=== PATIENT | female | born 1950 | race Caucasian/White ===

== ENCOUNTER 2017-10-25 11:00 | Emergency (ER) | payer MEDICARE, BC ==
[~2017-10-25 11:00] MED LIST: Sodium Chloride 0.9% 100 ML BAG ONE
[2017-10-25 11:31] LABS: #Basophils 0.1 thou/uL (0.0-0.2); #Eosinphils 0.1 thou/uL (0.0-0.7); #Lymphocytes 2.7 thou/uL (1.20-3.40); #Monocytes 1.2 thou/uL (0.11-0.59); #Neutrophils 13.3 thou/uL (1.40-6.50); %Basophils 0.6 % (0.0-1.0); %Eosinophils 0.3 % (0.0-10.0); %Lymphocytes 15.3 % (21.0-51.0); %Monocytes 6.9 % (0.0-10.0); %Neutrophils 76.9 % (42.0-75.0); Hemoglobin 11.5 g/dL (12.0-16.0); Mean Corpuscular HGB CONC 34.2 g/dL (32.0-36.0); Mean Corpuscular Hemoglobin 28.9 pg (27.0-31.0); Mean Corpuscular Volume 84.4 fL (78.0-98.0); Mean Platelet Volume 5.4 fL (7.4-10.4); Platelet Count 236 thou/uL (130-400); RBC Distribution Width 12.4 % (11.5-14.5); Red Blood Cell (RBC) Count 3.97 mill/uL (4.20-5.40); White Blood Cell (WBC) Count 17.3 thou/uL (4.8-10.8)
[2017-10-25 11:47] LABS: ALT (SGPT) 8 U/L (8-55); AST (SGOT) 10 U/L (5-34); Albumin 3.9 g/dL (3.4-4.8); Alkaline Phosphatase 86 U/L (40-150); Anion Gap 18 mmol/L (10-20); BUN (Urea Nitrogen) 9 mg/dL (9.8-20.1); Bilirubin, Total 1.3 mg/dL (0.2-1.2); Calc. Creatinine Clearance 0 mL/min (70-130); Calcium 8.9 mg/dL (7.8-10.44); Carbon Dioxide 23 mmol/L (23-31); Chloride 98 mmol/L (98-107); Estimated GFR-MDRD 89; Globulin 2.9 g/dL (2.4-3.5); Glucose 105 mg/dL (80-115); Potassium 3.9 mmol/L (3.5-5.1); Protein, Total 6.8 g/dL (6.0-8.3); Sodium 135 mmol/L (136-145)
[2017-10-25 11:50] LABS: Troponin I Less than 0.010 ng/mL (< 0.028)
[2017-10-25] MEDS ORDERED: Acetaminophen 500 MG TAB ONE (12:37)
--- NOTE | 2017-10-25 12:40 | RAD ---
CHEST TWO VIEWS: HISTORY: Cough. COMPARISON: None. FINDINGS: The lungs mildly hyperinflated. No pneumothorax or effusion. No distinct focal air space consolidat ion. There appears to be bullous formation in the upper lobes. No acute osseous abnormality. The pulmonary arteries are mildly prominent. IMPRESSION: 1. Evidence of obstructive pulmonary disease. 2. Nodular density, right lung apex, likely some scarring. Nonemergent follow-up CT chest may be be neficial. 3. Distal left clavicular osteolysis. POS: [facility]
[2017-10-25 12:44] LABS: Bilirubin Negative (Negative); Blood, Urine Moderate (Negative); Clarity Clear (Clear); Glucose, Urine (Dipstick) Negative (Negative); Leukocyte Negative (Negative); Nitrite Negative (Negative); Protein, Urine (Dipstick) Negative (Neg-Trace); Urobilinogen 0.2 mg/dL (0.2-1.0)
[2017-10-25 12:57] LABS: Bacteria/HPF Rare-Few HPF (None Seen); Squamous Epithelial 0-3 HPF (0-3); WBC/HPF None Seen HPF (0-3)
[2017-10-25] MEDS ORDERED: cefTRIAXone\\ROCEPHIN 1 GM VIAL ONE (13:17)
== END 2017-10-25 13:56 | disposition home or self-care (01) ==
LOC: MADERS 11:00
DX: J06.9 Acute upper respiratory infection, unspecified (principal); M19.90 Unspecified osteoarthritis, unspecified site; E78.5 Hyperlipidemia, unspecified; J44.9 Chronic obstructive pulmonary disease, unspecified; F32.9 Major depressive disorder, single episode, unspecified; Z87.891 Personal history of nicotine dependence; Z79.891 Long term (current) use of opiate analgesic; Z79.899 Other long term (current) drug therapy
CPT/HCPCS: 71046; 80053; 81003; 81015; 82553; 83605; 83880; 84484; 85025; 87040; 87149; 96365; J0696; J7050

== ENCOUNTER 2020-01-11 17:29 | Emergency (ER) | payer MEDICARE, BC ==
[2020-01-11] MEDS ORDERED: Ondansetron PF 4 MG/2 ML Vial ONE (17:45)
[2020-01-11] MEDS ORDERED: Ibuprofen 800 MG TAB ONE (17:53)
[2020-01-11] MEDS ORDERED: Aspirin Chewable 81 MG TAB ONE (17:53)
[2020-01-11] MEDS ORDERED: Sodium Chloride 0.9% 1,000 ML ONE (17:53)
[2020-01-11] MEDS ORDERED: Dexamethasone 10 MG/ML VIAL ONE (17:53)
[2020-01-11 18:07] LABS: #Lymphocytes 1.5 thou/uL (1.20-3.40); #Monocytes 0.4 thou/uL (0.11-0.59); %Basophils 0.7 % (0.0-1.0); %Eosinophils 0.3 % (0.0-10.0); %Lymphocytes 25.2 % (21.0-51.0); %Monocytes 5.9 % (0.0-10.0); %Neutrophils 67.8 % (42.0-75.0); Hemoglobin 13.8 g/dL (12.0-16.0); Mean Corpuscular HGB CONC 31.9 g/dL (32.0-36.0); Mean Corpuscular Hemoglobin 28.2 pg (27.0-31.0); Mean Corpuscular Volume 88.3 fL (78.0-98.0); Mean Platelet Volume 6.9 fL (7.4-10.4); Platelet Count 205 thou/uL (130-400); RBC Distribution Width 12.3 % (11.5-14.5); Red Blood Cell (RBC) Count 4.91 mill/uL (4.20-5.40); White Blood Cell (WBC) Count 5.9 thou/uL (4.8-10.8)
[2020-01-11 18:25] LABS: ALT (SGPT) 22 U/L (8-55); AST (SGOT) 18 U/L (5-34); Albumin 3.8 g/dL (3.4-4.8); Alkaline Phosphatase 106 U/L (40-110); Anion Gap 15 mmol/L (10-20); BUN (Urea Nitrogen) 9 mg/dL (9.8-20.1); Calc. Creatinine Clearance 0 mL/min (70-130); Calcium 8.3 mg/dL (7.8-10.44); Carbon Dioxide 27 mmol/L (23-31); Chloride 95 mmol/L (98-107); Estimated GFR-MDRD 79; Globulin 3.1 g/dL (2.4-3.5); Glucose 102 mg/dL (83-110); Potassium 3.4 mmol/L (3.5-5.1); Protein, Total 6.9 g/dL (6.0-8.3); Sodium 134 mmol/L (136-145)
--- NOTE | 2020-01-11 19:15 | RAD ---
Portable frontal chest radiograph: 01/11/2020 COMPARISON: 10/25/2017 HISTORY: Covid positive patient with shortness of breath FINDINGS: Increased linear interstitial density with pulmonary hyperinflation noted, stable when comp ared to the prior exam. Emphysematous changes are noted in the lung apices. There is atherosclerotic obscuration the aortic arch. No focal consolidation or alveolar edema IMPRESSION: No acute findings.
== END 2020-01-11 19:42 | disposition home or self-care (01) ==
LOC: MADERS 17:30
DX: R06.02 Shortness of breath (principal); R11.2 Nausea with vomiting, unspecified; R50.9 Fever, unspecified; R05 Cough; R07.9 Chest pain, unspecified; Z20.828 Contact with and (suspected) exposure to other viral communicable diseases; J44.9 Chronic obstructive pulmonary disease, unspecified; M19.90 Unspecified osteoarthritis, unspecified site; E78.5 Hyperlipidemia, unspecified; E78.00 Pure hypercholesterolemia, unspecified; F32.9 Major depressive disorder, single episode, unspecified; Z87.891 Personal history of nicotine dependence
CPT/HCPCS: 36415; 71045; 80053; 83605; 83880; 84484; 85025; 87040; 93005; 96374; 96375; J1100; J2405; J7050

== ENCOUNTER 2020-05-09 12:26 | Outpatient (CLI) | payer MEDICARE, BC ==
--- NOTE | 2020-05-09 12:48 | RAD ---
EXAM: Chest PA and lateral: HISTORY: COVID positive patient. Cough. COMPARISON: 10/25/2017, 01/11/2020 FINDINGS: Heart: Normal cardiac silhouette Aorta: Atherosclerosis is once again demonstrated Pulmonary vessels: Normal Costophrenic angles: Costophrenic angles are clear. Lungs: No consolidation or masses. Chronic changes. Hyperinflation is once again demonstrated. Pneumothorax: No pneumothorax Osseous structures: No osseous abnormalities IMPRESSION: 1. No acute cardiopulmonary process. 2. Atherosclerosis 3. Hyperinflation. Chronic changes.
== END 2020-05-09 12:27 | disposition home or self-care (01) ==
LOC: MADRAD 12:26
PROVIDERS: ATTEND Family Medicine
DX: J44.1 Chronic obstructive pulmonary disease with (acute) exacerbation (principal); R91.8 Other nonspecific abnormal finding of lung field; I70.0 Atherosclerosis of aorta; Z86.16 Personal history of COVID-19
CPT/HCPCS: 71046

== ENCOUNTER 2023-04-28 14:51 | Emergency (ER) | payer MEDICARE, BC ==
[2023-04-28] MEDS ORDERED: Ipratropium/Albuterol 3 ML NEB ONE (15:16)
[2023-04-28] MEDS ORDERED: methylPREDNISolone Sod Succ/PF 125 MG/2 ML VIAL ONE (15:16)
[2023-04-28 16:05] LABS: #Basophils 0.1 thou/uL (0.0-0.2); #Lymphocytes 1.6 thou/uL (1.20-3.40); #Monocytes 0.8 thou/uL (0.11-0.59); #Neutrophils 8.7 thou/uL (1.40-6.50); %Basophils 0.6 % (0.0-1.0); %Eosinophils 0.3 % (0.0-10.0); %Lymphocytes 14.6 % (21.0-51.0); %Monocytes 7.1 % (0.0-10.0); %Neutrophils 77.5 % (42.0-75.0); Hematocrit 35.3 % (36.0-47.0); Hemoglobin 11.2 g/dL (12.0-16.0); Mean Corpuscular HGB CONC 31.7 g/dL (32.0-36.0); Mean Corpuscular Hemoglobin 27.9 pg (27.0-31.0); Mean Corpuscular Volume 88.1 fl (78.0-98.0); Mean Platelet Volume 6.5 fL (7.4-10.4); Platelet Count 260 10x3/uL (130-400); Red Blood Cell (RBC) Count 4.01 mill/uL (4.20-5.40); White Blood Cell (WBC) Count 11.3 10x3/uL (4.8-10.8)
[2023-04-28 16:11] LABS: Anion Gap 14 mmol/L (10-20); BUN (Urea Nitrogen) 9 mg/dL (9.8-20.1); Calc. Creatinine Clearance 0 mL/min (70-130); Calcium 8.5 mg/dL (7.8-10.44); Carbon Dioxide 24 mmol/L (23-31); Chloride 105 mmol/L (98-107); Estimated GFR 92; Glucose 125 mg/dL (83-110); Potassium 3.2 mmol/L (3.5-5.1); Sodium 140 mmol/L (136-145)
[2023-04-28 16:17] LABS: Troponin I Less than 0.010 ng/mL (< 0.028)
[2023-04-28] MEDS ORDERED: cefTRIAXone (ROCEPHIN) 1 GM VIAL ONE (16:26)
[2023-04-28] MEDS ORDERED: Potassium Chloride 20 MEQ TAB ONE (16:26)
== END 2023-04-28 16:40 | disposition home or self-care (01) ==
LOC: MADERS 14:51
DX: J44.1 Chronic obstructive pulmonary disease with (acute) exacerbation (principal); E87.6 Hypokalemia; Z87.891 Personal history of nicotine dependence; Z79.899 Other long term (current) drug therapy
CPT/HCPCS: 71045; 80048; 84484; 85025; 87804; 93005; 96374; 96375; J0696; J2930; J7620

== ENCOUNTER 2023-08-07 15:14 | Outpatient (CLI) | payer MEDICARE, BC | END 2023-08-07 15:15 | disposition home or self-care (01) | LOC: MADLAB 15:14 | PROVIDERS: ATTEND Nurse Practitioner Family | DX: S69.91XA Unspecified injury of right wrist, hand and finger(s), initial encounter (principal); M19.041 Primary osteoarthritis, right hand; M19.071 Primary osteoarthritis, right ankle and foot ==

== ENCOUNTER 2024-02-12 09:39 | Emergency (ER) | payer MEDICARE, BC | END 2024-02-12 10:45 | disposition home or self-care (01) | LOC: MADERS 09:39 | DX: H92.03 Otalgia, bilateral (principal); J02.9 Acute pharyngitis, unspecified; J44.9 Chronic obstructive pulmonary disease, unspecified; Z87.891 Personal history of nicotine dependence | CPT/HCPCS: 87081; 87428; 87430; 99283 ==

== ENCOUNTER 2024-02-15 18:58 | Emergency (ER) | payer MEDICARE, BC ==
[2024-02-15] MEDS ORDERED: Albuterol 2.5 MG (3 mL) NEB ONE (19:17)
[2024-02-15] MEDS ORDERED: Albuterol 2.5 MG (0.5 mL) NEB ONE (19:18)
[2024-02-15] MEDS ORDERED: Ipratropium Bromide 2.5 ml Neb ONE (19:18)
[2024-02-15 20:07] LABS: #Lymphocytes 0.9 thou/uL (1.20-3.40); #Monocytes 0.4 thou/uL (0.11-0.59); #Neutrophils 8.1 thou/uL (1.40-6.50); %Basophils 0.5 % (0.0-1.0); %Lymphocytes 9.9 % (21.0-51.0); %Monocytes 3.8 % (0.0-10.0); %Neutrophils 85.8 % (42.0-75.0); Hematocrit 40.2 % (36.0-47.0); Hemoglobin 12.4 g/dL (12.0-16.0); Mean Corpuscular HGB CONC 30.9 g/dL (32.0-36.0); Mean Corpuscular Volume 87.4 fl (78.0-98.0); Mean Platelet Volume 6.6 fL (7.4-10.4); Platelet Count 231 10x3/uL (130-400); RBC Distribution Width 13.4 % (11.5-14.5); White Blood Cell (WBC) Count 9.5 10x3/uL (4.8-10.8)
[2024-02-15 20:09] LABS: INR-International Normal Ratio 1.1; Prothrombin Time 13.8 sec (12.0-14.7)
[2024-02-15 20:10] LABS: PTT 37.3 sec (22.9-36.1)
[2024-02-15 20:19] LABS: ALT (SGPT) 7 U/L (8-55); AST (SGOT) 15 U/L (5-34); Albumin 3.9 g/dL (3.4-4.8); Alkaline Phosphatase 84 U/L (40-110); Anion Gap 20 mmol/L (10-20); BUN (Urea Nitrogen) 10 mg/dL (9.8-20.1); Bilirubin, Total 0.8 mg/dL (0.2-1.2); Calc. Creatinine Clearance 0 mL/min (70-130); Calcium 8.8 mg/dL (7.8-10.44); Carbon Dioxide 21 mmol/L (23-31); Chloride 102 mmol/L (98-107); Estimated GFR 92; Globulin 3.1 g/dL (2.4-3.5); Glucose 117 mg/dL (83-110); Potassium 3.6 mmol/L (3.5-5.1); Sodium 139 mmol/L (136-145)
[2024-02-15] MEDS ORDERED: Azithromycin 500 MG VIAL ONE (20:34)
[2024-02-15] MEDS ORDERED: methylPREDNISolone Sod Succ/PF 125 MG/2 ML VIAL ONE (20:34)
[2024-02-15] MEDS ORDERED: cefTRIAXone (ROCEPHIN) 2 GM VIAL ONE (20:34)
[2024-02-15] MEDS ORDERED: Ondansetron PF 4 MG/2 ML Vial ONE (20:53)
[2024-02-15] MEDS ORDERED: Aspirin Chewable 81 MG TAB ONE (20:53)
[2024-02-15] MEDS ORDERED: Sodium Chloride 0.9% 1,000 ML ONE (20:53)
[2024-02-15] MEDS ORDERED: Ipratropium/Albuterol 3 ML NEB ONE (22:00)
[2024-02-15 22:30] LABS: Base Excess-Venous -2.3 mmol/L (-2.0 to 3.0); Bicarbonate (HCO3v) 23.2 mmol/L (22.0-28.0); CO2 Tension (PvCO2) 41.5 mmHg (42.0-51.0); Calcium, Ionized 1.07 mmol/L (1.15-1.33); Chloride 106 mmol/L (98-107); Hemoglobin - Calc 13.9 g/dL (12.0-16.0); Potassium 3.6 mmol/L (3.5-5.1); Sodium 140 mmol/L (138-145); T. Carbon Dioxide 24.5 mmol/L (22.0-28.0); vO2 Saturation-calc 99.2 % (60.0-85.0)
[2024-02-15 22:44] LABS: Troponin I 0.062 ng/mL (< 0.028)
[2024-02-15] MEDS ORDERED: HYDROcodone/Acetaminophen 5/325 mg Tablet ONE (23:04)
== END 2024-02-15 23:44 | disposition short-term general hospital (02) ==
LOC: MADERS 18:58
DX: J44.1 Chronic obstructive pulmonary disease with (acute) exacerbation (principal); R09.02 Hypoxemia; J18.9 Pneumonia, unspecified organism; R00.0 Tachycardia, unspecified; Z87.891 Personal history of nicotine dependence
CPT/HCPCS: 71045; 80053; 82330; 82803; 83605; 83880; 84484; 85025; 85610; 85730; 87040; 87400; 87426; 93005; 94760; 96361; 96365; 96367; 96375; J0456; J0696; J2405; J2919; J7030; J7611; J7620; J7644

== ENCOUNTER 2024-12-01 15:20 | Outpatient (CLI) | payer MEDICARE, BC | END 2024-12-01 15:21 | disposition home or self-care (01) | LOC: MADRAD 15:20 | PROVIDERS: ATTEND Family Medicine | DX: G89.4 Chronic pain syndrome (principal); M47.816 Spondylosis without myelopathy or radiculopathy, lumbar region; I77.811 Abdominal aortic ectasia | CPT/HCPCS: 72110 ==